=== PATIENT | female | born 1960 | race Caucasian/White ===

== ENCOUNTER 2023-07-16 19:36 | Emergency (ER) | payer MEDICARE ==
[~2023-07-16] VITALS: Ht 154.9 cm; Wt 112.6 kg
[~2023-07-16 19:36] MED LIST: BELBUCA150 MCG PO; CALCIUM500 MG PO; ESCITALOPRAM OX20 MG PO; FISH OIL 1,0001 EAC3 PO; IBU600 MG PO; IBUPROFEN600 MG PO; LIPITOR20 MG PO; LISINOPRIL5 MG PO; MAGNESIUM500 MG PO; MAPAP325 MG PO; NORCO 5-325 TA1 EACH PO; NOVOLIN R100 UNIT/1 INJ; NOVOLOG MI100 UNIT/2 SUB-Q; PERCOCET 7.5-31 EACH PO; VITAMIN C1000 MG PO; ZOFRAN4 MG PO
[2023-07-16 19:57] LABS: BASOPHILS 0.7 % (0-2); EOSINOPHILS 1.8 % (0-6); HEMATOCRIT 45.1 % (35.0-50.0); HEMOGLOBIN 14.8 g/dL (12.0-18.0); LYMPHOCYTES 12.5 % (24-44); MCH 30.8 (27-36); MCHC 32.8 g/dl (30-36); MONOCYTES 8.8 % (0-12); NEUTROPHILS 76.2 % (39-80); PLATELET COUNT 218 K/uL (140-440); RBC 4.79 M/ul (4.3-5.7); RDW 14.6 (10.5-15.0)
[2023-07-16 20:16] LABS: ALBUMIN 3.7 g/dL (3.4-5.0); ALBUMIN/GLOBULIN RATIO 1.03 (1.1-2.4); ALCOHOL, MEDICAL <3 ng/dL (<3); ALKALINE PHOSPHATASE 109 U/L (46-116); ALT (SGPT) 36 U/L (14-59); ANION GAP 11.7 (7-21); AST (SGOT) 29 U/L (15-37); BILIRUBIN, TOTAL 0.6 ng/dL (0.2-1.0); BUN/CREATININE RATIO 14.95 (6.0-28.6); CARBON DIOXIDE 26 mmol/L (21-32); CHLORIDE 101 mmol/L (98-107); CREATININE, SERUM 1.07 mg/dL (0.55-1.02); GLOMERULAR FILTRATION RATE,EST 59 mL/min (>60); POTASSIUM 4.7 mmol/L (3.5-5.1); PROTEIN, TOTAL 7.3 g/dL (6.4-8.2); UREA NITROGEN 16 mg/dL (7-18)
[2023-07-16 20:42] LABS: BILIRUBIN, URINE NEGATIVE (negative); BLOOD/HGB, URINE NEGATIVE (Negative); KETONE, URINE NEGATIVE (Negative); LEUK ESTERASE, URINE NEGATIVE (negative); NITRITE, URINE NEGATIVE (negative); PH, URINE 5.5 (5-7)
[2023-07-16] MEDS ORDERED: CLOPIDOGREL75 MG PO (21:01)
[2023-07-16] MEDS ORDERED: FARXIGA10 MG PO (21:01)
[2023-07-16] MEDS ORDERED: SERTRALINE HCL50 MG PO (21:03)
[2023-07-16] MEDS ORDERED: METOPROLOL SUCC25 MG PO (21:03)
[2023-07-16] MEDS ORDERED: OZEMPIC0.25 MG/02 SUB-Q (21:05)
[2023-07-16] MEDS ORDERED: LANTUS SOL100 UNIT/1 SUB-Q (21:06)
[2023-07-16] MEDS ORDERED: ASPIRIN81 MG PO (21:07)
[2023-07-16 21:23] VITALS: BP 131/48
== END 2023-07-16 21:20 | disposition home or self-care (01) ==
LOC: ED 19:36
PROVIDERS: Internal Medicine
DX: S00.83XA Contusion of other part of head, initial encounter (principal); W18.30XA Fall on same level, unspecified, initial encounter; E11.9 Type 2 diabetes mellitus without complications; Z79.4 Long term (current) use of insulin; Z79.899 Other long term (current) drug therapy
CPT/HCPCS: 36415; 70450; 71045; 80053; 81003; 83735; 85025; 99284-25; G0480

== ENCOUNTER 2023-08-09 11:07 | Emergency (ER) | payer MEDICARE ==
[~2023-08-09] VITALS: Ht 154.9 cm; Wt 116.1 kg
[~2023-08-09 11:07] MED LIST changes: +ASPIRIN81 MG PO; +CLOPIDOGREL75 MG PO; +FARXIGA10 MG PO; +LANTUS SOL100 UNIT/1 SUB-Q; +METOPROLOL SUCC25 MG PO; +OZEMPIC0.25 MG/02 SUB-Q; +SERTRALINE HCL50 MG PO
[2023-08-09] MEDS ORDERED: ASPIRIN 81 MG CHEW PO ONE (11:15)
--- OUTSIDE RECORDS SUMMARY | 2023-08-09 11:16 | XMS ---
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 Caren VISIT COUNT (12 MO.) 3 [facility] TOTAL 3 NOTE: Visits indicate total known visits. 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 - Type 2 diabetes mellitus without complications 05/24/2023 18:23 [facility] [place] TYPE: Emergency COMPLAINT: - TRAUMA DIAGNOSES: - Allergy status to narcotic agent - Allergy status to other drugs, medicaments and biological substances - Allergy status to penicillin - Contusion of right knee, initial encounter - Contusion of right shoulder, initial encounter - Laceration without foreign body of other part of head, initial encounter - correction (current) use of anticoagulants - correction (current) use of aspirin - 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
[2023-08-09] MEDS ORDERED: PIOGLITAZONE HC15 MG PO (11:25)
[2023-08-09] MEDS ORDERED: BUPROPION XL300 MG PO (11:26)
[2023-08-09] MEDS ORDERED: ATORVASTATIN CA80 MG PO (11:27)
[2023-08-09] MEDS ORDERED: LISINOPRIL2.5 MG PO (11:27)
[2023-08-09 11:28] LABS: BASOPHILS 0.7 % (0-2); EOSINOPHILS 2.7 % (0-6); HEMATOCRIT 36.2 % (35.0-50.0); LYMPHOCYTES 13.6 % (24-44); MCH 30.9 (27-36); MCHC 33.1 g/dl (30-36); MCV 93.2 fl (81-99); MONOCYTES 9.9 % (0-12); NEUTROPHILS 73.1 % (39-80); PLATELET COUNT 264 K/uL (140-440); RBC 3.88 M/ul (4.3-5.7); RDW 14.6 (10.5-15.0)
[2023-08-09 11:52] LABS: ALBUMIN 3.4 g/dL (3.4-5.0); ALBUMIN/GLOBULIN RATIO 0.94 (1.1-2.4); ANION GAP 10.9 (7-21); BILIRUBIN, TOTAL 0.6 ng/dL (0.2-1.0); BUN/CREATININE RATIO 15.66 (6.0-28.6); CALCIUM 8.4 mg/dL (8.5-10.1); CREATININE, SERUM 0.83 mg/dL (0.55-1.02); MAGNESIUM 1.9 mg/dL (1.8-2.4); POTASSIUM 4.9 mmol/L (3.5-5.1)
--- NOTE | 2023-08-09 12:53 | EKG ---
[facility] [address] [address] [place] [address] Signed Normal sinus rhythm Left axis deviation Minimal voltage criteria for LVH, may be normal variant ( Hydro product ) Abnormal ECG When compared with ECG of 23-FEB-2018 14:27, No significant change was found Confirmed by ASAD PATINO MD ([id number]) on 08/09/2023 12:53:02 PM Electronically Signed By: ASAD PATINO 08/09/23 1253 PATIENT NAME: KATELYNN CRANDALL Electrocardiogram DATE OF : 62 PHYSICIAN: ASAD PATINO REPORT #: [id number] REPORT IS CONFIDENTIAL AND NOT TO BE RELEASED WITHOUT AUTHORIZATION
[2023-08-09 13:16] VITALS: BP 147/74
== END 2023-08-09 13:16 | disposition home or self-care (01) ==
LOC: ED 11:07
PROVIDERS: Emergency Medicine
DX: R07.89 Other chest pain (principal); R60.0 Localized edema; E11.9 Type 2 diabetes mellitus without complications; Z88.0 Allergy status to penicillin; Z88.5 Allergy status to narcotic agent; Z88.8 Allergy status to other drugs, medicaments and biological substances; Z79.899 Other long term (current) drug therapy; Z79.4 Long term (current) use of insulin; Z79.82 Long term (current) use of aspirin
CPT/HCPCS: 36415; 71045; 80053; 83735; 83880; 84484; 85025; 93005; 93010; 99285-25

== ENCOUNTER 2024-10-12 11:00 | Emergency (ER) | payer MEDICARE ==
[~2024-10-12] VITALS: Ht 154.9 cm; Wt 127.0 kg
[~2024-10-12 11:00] MED LIST changes: +ATORVASTATIN CA80 MG PO; +BUPROPION XL300 MG PO; +LISINOPRIL2.5 MG PO; +PIOGLITAZONE HC15 MG PO
[2024-10-12] MEDS ORDERED: JARDIANCE25 MG PO (11:13)
[2024-10-12] MEDS ORDERED: ASPIRIN 81 MG CHEW PO ONE (11:15)
[2024-10-12 11:24] LABS: BASOPHILS 0.8 % (0.1-1.2); EOSINOPHILS 6.6 % (0.7-5.8); LYMPHOCYTES 19.0 % (19.3-51.7); MCH 30.9 PG (25.6-32.2); MCHC 32.6 g/dL (32.2-35.5); MCV 94.8 fL (79.4-94.8); MONOCYTES 10.6 % (4.7-12.5); NEUTROPHILS 62.8 % (34.0-71.1); RBC 4.46 M/uL (3.93-5.22)
[2024-10-12 11:44] LABS: ALT (SGPT) 33.0 U/L (14-59); AST (SGOT) 20.0 U/L (15-37); GLOMERULAR FILTRATION RATE,EST 73.0 mL/min (>60); PROTEIN, TOTAL 7.2 g/dL (6.4-8.2); UREA NITROGEN 24.0 mg/dL (7-18)
[2024-10-12] MEDS ORDERED: POTASSIUM CHLO20 ME2 PO (13:40)
[2024-10-12] MEDS ORDERED: LASIX40 MG PO (13:40)
[2024-10-12 14:07] VITALS: BP 128/53
--- NOTE | 2024-10-13 20:25 | EKG ---
[facility] [address] [place] [address] Signed Normal sinus rhythm Left anterior fascicular block Minimal voltage criteria for LVH, may be normal variant ( Davis product ) Abnormal ECG When compared with ECG of 09-AUG-2023 11:16, T wave inversion no longer evident in Inferior leads Confirmed by Slime Fragoso MD () on 10/13/2024 8:25:33 PM Electronically Signed By: SLIME FRAGOSO MD 10/13/242024 PATIENT NAME: KATELYNN CRANDALL Electrocardiogram DATE OF : 62 PHYSICIAN: SLIME FRAGOSO MD REPORT #: [id number] REPORT IS CONFIDENTIAL AND NOT TO BE RELEASED WITHOUT AUTHORIZATION
== END 2024-10-12 14:07 | disposition home or self-care (01) ==
LOC: ED 11:00
PROVIDERS: Emergency Medicine
DX: I50.9 Heart failure, unspecified (principal); R60.0 Localized edema; E11.9 Type 2 diabetes mellitus without complications; Z88.0 Allergy status to penicillin; Z88.5 Allergy status to narcotic agent; Z88.8 Allergy status to other drugs, medicaments and biological substances; Z79.4 Long term (current) use of insulin; Z79.82 Long term (current) use of aspirin; Z79.899 Other long term (current) drug therapy
CPT/HCPCS: 36415; 71045; 80053; 83735; 83880; 84484; 85025; 93005; 93010; 99285-25; A9270